=== PATIENT | male | born 1980 | race Caucasian/White ===

== ENCOUNTER 2016-07-13 20:57 | Observation (INO) | payer MEDICAID, OTHER ==
[~2016-07-13] VITALS: Ht 180.3 cm; Wt 100.0 kg
[~2016-07-13 20:57] MED LIST: ROBA750T PO; TYLE3 PO
[2016-07-13 20:59] VITALS: BP 143/88; PULSE 74; RESP 16; TEMP 97.8; O2SAT 98
[2016-07-14 00:29] VITALS: BP 127/78; PULSE 77; RESP 20; O2SAT 97
[2016-07-14 01:19] LABS: BLOOD, URINE NEG (NEG); COMMENT (UR) CULT NOT INDICATED; CULTURE IF INDICATED CULT NOT INDICATED; GLUCOSE,URINE NEG (NEG); KETONE, URINE NEG (NEG); MUCUS URINE FEW /lpf (OCC); NITRITE,URINE NEG (NEG); PH, URINE 5.5 (5.0-8.5); SQUAMOUS EPITHELIAL CELL URINE <1 /hpf (0-5); URINE COLOR YELLOW (YELLW/STRAW)
[2016-07-14 01:24] LABS: AUTOMATED NEUTROPHIL # 13.3 TH/MM3 (1.8-7.7); BASOPHIL % 0.2 % (0.0-2.0); EOSINOPHIL % 0.2 % (0.0-4.0); HEMATOCRIT 43.9 % (39.0-51.0); HEMO FLAGS DIFF FINAL; LYMPHOCYTE # 1.4 TH/MM3 (1.0-4.8); MEAN CELL VOLUME 88.4 FL (80.0-100.0); MEAN CORPUSCULAR HEMOGLOBIN 30.2 PG (27.0-34.0); MEAN CORPUSCULAR HGB CONC 34.2 % (32.0-36.0); MONO % 4.6 % (0.0-8.0); PLATELET COUNT 207 TH/MM3 (150-450); RED BLOOD COUNT 4.97 MIL/MM3 (4.50-5.90); RED CELL DISTRIBUTION WIDTH 13.4 % (11.6-17.2); WHITE BLOOD COUNT 15.4 TH/MM3 (4.0-11.0)
[2016-07-14 01:25] LABS: AMPHETAMINE, URINE NEG (NEG); BARBITURATES, URINE NEG (NEG); COCAINE, URINE NEG (NEG)
[2016-07-14 01:31] LABS: APTT (PATIENT) 28.5 SEC (24.3-30.1); PROTHROMBIN TIME - PATIENT 11.2 SEC (9.8-11.6)
[2016-07-14 01:37] LABS: ALT (GPT) 33 U/L (12-78); ANION GAP 6 MEQ/L (5-15); AST (GOT) 14 U/L (15-37); BICARBONATE 28.9 MEQ/L (21.0-32.0); BLOOD UREA NITROGEN 13 MG/DL (7-18); CHLORIDE 104 MEQ/L (98-107); GLOMERULAR FILTRATION RATE 75 ML/MIN (>89); POTASSIUM 3.8 MEQ/L (3.5-5.1); SODIUM (NA) 139 MEQ/L (136-145)
[2016-07-14 01:41] LABS: ALKALINE PHOSPHATASE 55 U/L (45-117); CREATINE KINASE 113 U/L (39-308); TOTAL BILIRUBIN ADULT 0.5 MG/DL (0.2-1.0)
[2016-07-14 01:54] LABS: CKMB 1.1 NG/ML (0.5-3.6)
--- NOTE | 2016-07-14 02:03 | RADRPT ---
EXAM DATE/TIME: 07/14/2016 01:06 [facility] COMPARISON: No previous studies available for comparison. INDICATIONS : Syncope. RADIATION DOSE: 56.35 CTDIvol (mGy) MEDICAL HISTORY : None SURGICAL HISTORY : Appendectomy. ENCOUNTER: Initial ACUITY: 1 day PAIN SCALE: 0/10 LOCATION: cranial TECHNIQUE: Multiple contiguous axial images were obtained of the head. Using automated exposure control and adj ustment of the mA and/or kV according to patient size, radiation dose was kept as low as reasonably a chievable to obtain optimal diagnostic quality images. FINDINGS: CEREBRUM: The ventricles are normal for age. No evidence of midline shift, mass lesion, hemorrhage or acute in farction. No extra-axial fluid collections are seen. POSTERIOR FOSSA: The cerebellum and brainstem are intact. The 4th ventricle is midline. The cerebellopontine angle i s unremarkable. EXTRACRANIAL: The visualized portion of the orbits is intact. SKULL: The calvaria is intact. No evidence of skull fracture. CONCLUSION: Normal examination. Pj Lundberg MD on July 14, 2016 at 2:01 Board Certified Radiologist. This report was verified electronically.
--- NOTE | 2016-07-14 02:09 | RADRPT ---
EXAM DATE/TIME: 07/14/2016 00:56 [facility] COMPARISON: No previous studies available for comparison. INDICATIONS : Syncope. Weakness. MEDICAL HISTORY : None. SURGICAL HISTORY : None. ENCOUNTER: Initial ACUITY: 1 day PAIN SCORE: 6/10 LOCATION: Bilateral chest FINDINGS: A single view of the chest demonstrates the lungs to be symmetrically aerated without evidence of mas s, infiltrate or effusion. The cardiomediastinal contours are unremarkable. Osseous structures are intact. CONCLUSION: No acute disease. Pj Lundberg MD on July 14, 2016 at 2:08 Board Certified Radiologist. This report was verified electronically.
--- NOTE | 2016-07-14 02:32 | PD ---
HPI Chief Complaint: Syncope/Near-Syncope Time Seen by Provider: 00:40 Travel History International Travel<30 days: No Contact w/Intl Traveler<30days: No Traveled to known affect area: No History of Present Illness HPI The patient is a 36 year old male who presents to the [facility] emergency department with a history of while sitting in a movie theater watching a movie with his and family reportedly beginning to feel ill. He began to sweat according to his and then became unresponsive with his eyes rolling back in his head and shaking of his extremities. She reports that this lasted for a minute and then the patient became more awake. The patient had one episode of vomiting then and another one after arriving in the emergency department. His reports that he was drowsy after this episode and confused. The patient reports that a similar episode happened 2-3 years ago. He did not get evaluated at that time for this. He denies having any other neurologic history. The patient denies biting his tongue. He denies having any loss of bowel or bladder control. The patient on review of systems reports that he did have a headache yesterday. He reports that he took a leftover Tylenol No. 4 from home. He reports that he does not have a headache currently. The patient denies any recent fevers, cough, congestion, neck pain, chest pain, shortness of breath, abdominal pain, diarrhea, urinary symptoms, or other neurologic symptoms. FOR[facility]LY [facility] Past Medical History Narrative Medical The patient's past medical history is reportedly none. Autoimmune Disease: No Blood Disorders: No Cancer: No Cardiovascular Problems: No Diabetes: No Diminished Hearing: No Genitourinary: No Musculoskeletal: No Neurologic: No Psychiatric: No Respiratory: No Thyroid Disease: No Past Surgical History Narrative Surgical The patient's past surgical history significant for an appendectomy. Abdominal Surgery: Yes (appendics) Appendectomy: Yes Cardiac Surgery: No Ear Surgery: No Endocrine Surgery: No Eye Surgery: No Genitourinary Surgery: No Gynecologic Surgery: No Oral Surgery: No Thoracic Surgery: No Other Surgery: Yes (SKIN GRAFT TO RIGHT HAND) Social History Alcohol Use: No Tobacco Use: No Substance Use: Yes (daily marijuana use) Allergies-Medications (Allergen,Severity, Reaction): Coded Allergies: Aspirin (Verified Allergy, Severe, EYES SWELLING, 07/13/16) Ibuprofen (Verified Allergy, Severe, 07/13/16) Penicillin (Verified Allergy, Severe, Hives, 07/13/16) E-Mycin (Verified Allergy, Intermediate, rash, 07/13/16) Reported Meds & Prescriptions Reported Meds & Active Scripts Active Review of Systems Except as stated in HPI: all other systems reviewed are Neg General / Constitutional: No: Fever Eyes: No: Visual changes HENT: No: Headaches Cardiovascular: No: Chest Pain or Discomfort Respiratory: No: Shortness of Breath Gastrointestinal: Positive: Nausea, Vomiting (2 prior to arrival), No: Diarrhea, Abdominal Pain Genitourinary: No: Dysuria Musculoskeletal: No: Pain Skin: No Rash Neurologic: Positive: Weakness (generalized weakness), Syncope, Change in Mentation, Seizures, No: Focal Abnormalities, Slurred Speech, Sensory Disturbance Psychiatric: No: Depression Endocrine: No: Polydipsia Hematologic/Lymphatic: No: Easy Bruising Physical Exam Narrative General: The patient is a well-developed well-nourished male in no acute distress. Head and Neck exam: Head is normocephalic atraumatic. Eyes: EOMI, pupils are equal round and reactive to light. Nose: Midline septum with pink mucous membranes Mouth: Dentition unremarkable. Moist mucus membranes. Posterior oropharynx is not erythematous. No tonsillar hypertrophy. Uvula midline. Airway patent. No evidence of tongue biting or contusion to the tongue. Neck: No palpable lymphadenopathy. No nuchal rigidity. No thyromegaly. Cardiovascular: Regular rate and rhythm without murmurs, gallops, or rubs. Lungs: Clear to auscultation bilaterally. No wheezes, rhonchi, or rales. Abdomen: Soft, without tenderness to palpation in all 4 quadrants of the abdomen. No guarding, rebound, or rigidity. Normal bowel sounds are audible. Extremities: No clubbing, cyanosis, or edema. 2+ pulses in all 4 extremities. No calf tenderness on palpation. Back: No spinous process tenderness to palpation. No costovertebral angle tenderness to palpation. Neurologic Exam: Cranial nerves 2-12 were intact on exam. Strength is 5/5 in all 4 extremities. No sensory deficits noted. Skin Exam: No rash noted. Intact skin that is warm and dry. Data Data Last Documented VS Vital Signs Date Time Temp Pulse Resp B/P Pulse Ox O2 Delivery O2 Flow Rate FiO2 07/14/16 00:29 77 20 127/78 97 Room Air 07/13/16 20:59 97.8 Orders Electrocardiogram (07/14/16 00:41) Complete Blood Count With Diff (07/14/16 00:41) Comprehensive Metabolic Panel (07/14/16 00:41) Creatine Kinase (Cpk) (07/14/16 00:41) Ckmb (Isoenzyme) Profile (07/14/16 00:41) Troponin I (07/14/16 00:41) B-Type Natriuretic Peptide (07/14/16 00:41) Prothrombin Time / Inr (Pt) (07/14/16 00:41) Act Partial Throm Time (Ptt) (07/14/16 00:41) Lipase (07/14/16 00:41) Urinalysis - C+S If Indicated (07/14/16 00:41) Chest, Single Ap (07/14/16 00:41) Ct Brain W/O Iv Contrast(Rout) (07/14/16 00:41) Iv Access Insert/Monitor (07/14/16 00:41) Ecg Monitoring (07/14/16 00:41) Oximetry (07/14/16 00:41) Drug Screen, Random Urine (07/14/16 00:41) Alcohol (Ethanol) (07/14/16 00:41) CKMB (07/14/16 01:05) CKMB% (07/14/16 01:05) Sodium Chlor 0.9% 1000 Ml Inj (Ns 1000 M (07/14/16 02:45) Ondansetron Inj (Zofran Inj) (07/14/16 02:45) Admit Order (Ed Use Only) (07/14/16 02:54) Labs Laboratory Tests Test 07/14/16 01:05 White Blood Count 15.4 TH/MM3 Red Blood Count 4.97 MIL/MM3 Hemoglobin 15.0 GM/DL Hematocrit 43.9 % Mean Corpuscular Volume 88.4 FL Mean Corpuscular Hemoglobin 30.2 PG Mean Corpuscular Hemoglobin 34.2 % Concent Red Cell Distribution Width 13.4 % Platelet Count 207 TH/MM3 Mean Platelet Volume 8.1 FL Neutrophils (%) (Auto) 86.0 % Lymphocytes (%) (Auto) 9.0 % Monocytes (%) (Auto) 4.6 % Eosinophils (%) (Auto) 0.2 % Basophils (%) (Auto) 0.2 % Neutrophils # (Auto) 13.3 TH/MM3 Lymphocytes # (Auto) 1.4 TH/MM3 Monocytes # (Auto) 0.7 TH/MM3 Eosinophils # (Auto) 0.0 TH/MM3 Basophils # (Auto) 0.0 TH/MM3 CBC Comment DIFF FINAL Differential Comment Prothrombin Time 11.2 SEC Prothromb Time International 1.0 RATIO Ratio Activated Partial 28.5 SEC Thromboplast Time Urine Color YELLOW Urine Turbidity CLEAR Urine pH 5.5 Urine Specific [place] 1.021 Urine Protein TRACE mg/dL Urine Glucose (UA) NEG mg/dL Urine Ketones NEG mg/dL Urine Occult Blood NEG Urine Nitrite NEG Urine Bilirubin NEG Urine Urobilinogen LESS THAN 2.0 MG/DL Urine Leukocyte Esterase NEG Urine RBC 1 /hpf Urine WBC 4 /hpf Urine Squamous Epithelial <1 /hpf Cells Urine Mucus FEW /lpf Microscopic Urinalysis Comment CULT NOT INDICATED Sodium Level 139 MEQ/L Potassium Level 3.8 MEQ/L Chloride Level 104 MEQ/L Carbon Dioxide Level 28.9 MEQ/L Anion Gap 6 MEQ/L Blood Urea Nitrogen 13 MG/DL Creatinine 1.12 MG/DL Estimat Glomerular Filtration 75 ML/MIN Rate Random Glucose 103 MG/DL Calcium Level 9.2 MG/DL Total Bilirubin 0.5 MG/DL Aspartate Amino Transf 14 U/L (AST/SGOT) Alanine Aminotransferase 33 U/L (ALT/SGPT) Alkaline Phosphatase 55 U/L Total Creatine Kinase 113 U/L Creatine Kinase MB 1.1 NG/ML Troponin I LESS THAN 0.02 NG/ML B-Type Natriuretic Peptide 2 PG/ML Total Protein 7.5 GM/DL Albumin 4.5 GM/DL Lipase 97 U/L Urine Opiates Screen POS Urine Barbiturates Screen NEG Urine Amphetamines Screen NEG Urine Benzodiazepines Screen NEG Urine Cocaine Screen NEG Urine Cannabinoids Screen POS Ethyl Alcohol Level LESS THAN 3 MG/DL MDM Medical Decision Making Medical Screen Exam Complete: Yes Emergency Medical Condition: Yes Medical Record Reviewed: Yes Interpretation(s) Last Impressions Head CT 07/14/1640 Signed Impressions: Service Date/Time: Thursday, July 14, 2016 01:06 - CONCLUSION: Normal examination. Pj Lundberg MD Chest X-Ray 07/14/1640 Signed Impressions: Service Date/Time: Thursday, July 14, 2016 00:56 - CONCLUSION: No acute disease. Pj Lundberg MD Brain MRI 07/14/16 0000 Signed Impressions: Service Date/Time: Thursday, July 14, 2016 08:10 - CONCLUSION: Normal examination. Nicho Luo Jr., MD Differential Diagnosis Syncope, versus seizure disorder, versus hypoglycemic event, versus encephalopathy, versus intracranial abnormality Narrative Course During the course of the patients emergency department visit, the patients history, examination, and differential diagnosis were reviewed with the patient. The patient had IV access obtained and blood work sent for analysis. The patient was placed on a ekg monitor tech with oximetry and blood pressure monitoring. The patient had an EKG done on arrival. The patient's EKG shows a sinus rhythm heart rate of 74, moderate voltage criteria for LVH, no acute ST segment elevation is noted. T waves are inverted in V1, V2. The patient was provided normal saline 1 L IV fluid bolus, Zofran 4 mg IVP The patients laboratory studies were reviewed and remarkable for a CBC that shows a white count of 15.4, hemoglobin 15, platelets 207 with 86 neutrophils. CMP is remarkable for a GFR of 75, AST 14, CPK 113, troponin I less than 0.02, BNP is 2, lipase 97, PT PTT unremarkable. Urinalysis shows no acute abnormality. Urine drug screen is positive for opiates and cannabinoids, alcohol less than 3. Radiology studies were reviewed and remarkable for a chest x-ray that is unremarkable, CT scan of the brain shows no acute abnormality. As this is the second occasion that episode similar to this has occurred in this could be related to seizure activity versus syncope, the patient will be admitted to the hospital for continued evaluation and treatment. The patients results were discussed with the patient, including the plan of care. I explained that further testing and/ or monitoring is indicated based on the patients history, examination, and/ or laboratory findings. Therefore, I recommended admission for additional evaluation. The patient expressed understanding and was agreeable with this plan. The patient was admitted to the hospital in stable condition and [facility] Physician Communication Physician Communication The patient's case was discussed with Dr. Carey who did agree to admit the patient for further evaluation and treatment at this time. Diagnosis Primary Impression: Seizure-like activity Additional Impression: Vomiting Qualified Code: R11.2 - Non-intractable vomiting with nausea, unspecified vomiting type Admitting Information Admitting Physician Requests: Observation Rohini Ansari MD Jul 14, 2016 02:32
[2016-07-14] MEDS ORDERED: ONDANSETRON HCL 4 MG/2 ML VIAL IV ONE (02:45)
[2016-07-14] MEDS ORDERED: SODIUM CHLOR 0.9% 1000 ML INJ 1,000 ML IV ONE (02:45)
[2016-07-14] MEDS ORDERED: LORazepam 2 MG/ML VIAL IV PUSH PRN (03:15)
[2016-07-14] MEDS ORDERED: ACETAMINOPHEN/HYDROcodone 325 MG/5 MG TAB PO PRN (03:15)
[2016-07-14] MEDS ORDERED: ACETAMINOPHEN/HYDROcodone 325 MG/10 MG TAB PO PRN (03:15)
[2016-07-14] MEDS ORDERED: ACETAMINOPHEN 325 MG TAB PO PRN (03:15)
[2016-07-14] MEDS ORDERED: BISACODYL 10 MG SUPP PR PRN (03:15)
[2016-07-14] MEDS ORDERED: ONDANSETRON HCL 4 MG/2 ML VIAL IVP PRN (03:15)
[2016-07-14] MEDS ORDERED: SODIUM CHLORIDE 0.9% FLUSH 10 ML FLUSH IV FLUSH PRN (03:15)
[2016-07-14] MEDS: SODIUM CHLOR 0.9% 1000 ML INJ 1,000 ML IV SCH ×2 (03:52→15:44)
[2016-07-14 03:53] VITALS: BP 129/67; PULSE 75; PULSE 83; RESP 18; O2SAT 99
--- NOTE | 2016-07-14 04:34 | HHI.HP ---
[facility] No Primary Care Physician Admission Diagnosis Syncope versus seizure activity Diagnoses: (1) Seizure Diagnosis: Principal (2) Dehydration Diagnosis: Principal (3) Leukocytosis Diagnosis: Principal Travel History International Travel<30 Days: No Contact w/Intl Traveler <30 Da: No Traveled to Known Affected Are: No History of Present Illness This is a 36-year-old male with no reported PMH was brought to the ER secondary to suspected seizure activity. Pt was apparently at the movies w/ family when girlfriend noted acute onset of shaking, states eyes rolled in the back of his head. Episode lasted approx 1 min, no incontinence of urine or feces. No prolonged post-ictal period. Reports similar event approx 2yrs ago however did not seek medical attention at that time. On arrival, BP 143/88, HR 74, O2 sat 98% on RA, Afebrile. WBC 15.4. Chemistry unremarkable except for GFR 75. INR 1.0. UA negative. Urine Drug Screen positive for Opiates, positive for Marijuana. Pt reports taking Tylenol #4 for headache earlier today. CT Head normal. CXR with no acute findings. Review of Systems Except as stated in HPI: all other systems reviewed are Neg ROS: 14 point review of systems otherwise negative. Past Family Social History Past Medical History PMH: None Past Surgical History PAST SURGICAL HISTORY: Appendectomy, Hand Skin Graft Allergies: Coded Allergies: Aspirin (Verified Allergy, Severe, EYES SWELLING, 07/13/16) Ibuprofen (Verified Allergy, Severe, 07/13/16) Penicillin (Verified Allergy, Severe, Hives, 07/13/16) E-Mycin (Verified Allergy, Intermediate, rash, 07/13/16) Family History PAST FAMILY HISTORY: Reviewed. No h/o DM or CAD Social History PAST SOCIAL HISTORY: Negative for alcohol or tobacco. Smokes Marijuana daily. Physical Exam Vital Signs Vital Signs Date Time Temp Pulse Resp B/P Pulse Ox O2 Delivery O2 Flow Rate FiO2 07/14/16 03:53 75 18 129/67 99 Room Air 07/14/16 03:53 83 18 129/67 99 Room Air 07/14/16 00:29 77 20 127/78 97 Room Air 07/13/16 20:59 97.8 74 16 143/88 98 Room Air Physical Exam PE: GENERAL: Young male in no acute distress. HEENT: PERRLA, EOMI. No scleral icterus or conjunctival pallor. No lid lag or facial droop. CARDIOVASCULAR: Regular rate and rhythm. No obvious murmurs to auscultation. No chest tenderness to palpation. RESPIRATORY: No obvious rhonchi or wheezing. Clear to auscultation. Breath sounds equal bilaterally. GASTROINTESTINAL: Abdomen soft, non-tender, nondistended. BS normal. MUSCULOSKELETAL: Extremities without clubbing, cyanosis, or edema. No obvious deformities. NEUROLOGICAL: Awake, alert and oriented x4. No focal neurologic deficits. Moving both upper and lower extremities spontaneously. Laboratory Laboratory Tests Test 07/14/16 01:05 White Blood Count 15.4 Red Blood Count 4.97 Hemoglobin 15.0 Hematocrit 43.9 Mean Corpuscular Volume 88.4 Mean Corpuscular Hemoglobin 30.2 Mean Corpuscular Hemoglobin 34.2 Concent Red Cell Distribution Width 13.4 Platelet Count 207 Mean Platelet Volume 8.1 Neutrophils (%) (Auto) 86.0 Lymphocytes (%) (Auto) 9.0 Monocytes (%) (Auto) 4.6 Eosinophils (%) (Auto) 0.2 Basophils (%) (Auto) 0.2 Neutrophils # (Auto) 13.3 Lymphocytes # (Auto) 1.4 Monocytes # (Auto) 0.7 Eosinophils # (Auto) 0.0 Basophils # (Auto) 0.0 CBC Comment DIFF FINAL Differential Comment Prothrombin Time 11.2 Prothromb Time International 1.0 Ratio Activated Partial 28.5 Thromboplast Time Urine Color YELLOW Urine Turbidity CLEAR Urine pH 5.5 Urine Specific [place] 1.021 Urine Protein TRACE Urine Glucose (UA) NEG Urine Ketones NEG Urine Occult Blood NEG Urine Nitrite NEG Urine Bilirubin NEG Urine Urobilinogen LESS THAN 2.0 Urine Leukocyte Esterase NEG Urine RBC 1 Urine WBC 4 Urine Squamous Epithelial <1 Cells Urine Mucus FEW Microscopic Urinalysis Comment CULT NOT INDICATED Sodium Level 139 Potassium Level 3.8 Chloride Level 104 Carbon Dioxide Level 28.9 Anion Gap 6 Blood Urea Nitrogen 13 Creatinine 1.12 Estimat Glomerular Filtration 75 Rate Random Glucose 103 Calcium Level 9.2 Total Bilirubin 0.5 Aspartate Amino Transf 14 (AST/SGOT) Alanine Aminotransferase 33 (ALT/SGPT) Alkaline Phosphatase 55 Total Creatine Kinase 113 Creatine Kinase MB 1.1 Troponin I LESS THAN 0.02 B-Type Natriuretic Peptide 2 Total Protein 7.5 Albumin 4.5 Lipase 97 Urine Opiates Screen POS Urine Barbiturates Screen NEG Urine Amphetamines Screen NEG Urine Benzodiazepines Screen NEG Urine Cocaine Screen NEG Urine Cannabinoids Screen POS Ethyl Alcohol Level LESS THAN 3 Result Diagram: 07/14/1610407/14/16104 Assessment and Plan Problem List: (1) Seizure ICD Code: R56.9 Status: Acute (2) Leukocytosis ICD Code: D72.829 Status: Acute (3) Dehydration ICD Code: E86.0 Status: Acute Assessment and Plan A/P: 1. Seizure: acute seizure activity lasting approx 1min, witnessed by family, no incontinence, similar event approx 2yrs ago, did not seek medical attention at that time. CT Head w/ no acute findings, images reviewed by me. No recurrent seizure while in ER. Seizure Precautions, Ativan prn, EEG, check MRI Brain, Consult Neurology for further evaluation. 2. Leukocytosis: WBC 15.4, afebrile, likely related to seizure activity, no evidence of infection, CXR w/ no acute findings, images reviewed by me. U/a negative. Repeat labs in am. 3. Dehydration: GFR 75, IVF for hydration, repeat labs in am. 4. DVT Prophylaxis: SCD/Teds. 5. Social work for d/c planning as needed. 6. Case discussed w/ ER physician at length. Shannon Carey MD Jul 14, 2016 04:34
[2016-07-14 07:59] VITALS: BP 120/65; PULSE 81; RESP 18; O2SAT 99
--- NOTE | 2016-07-14 08:55 | RADRPT ---
EXAM DATE/TIME: 07/14/2016 08:10 [facility] COMPARISON: CT BRAIN W/O CONTRAST, July 14, 2016, 1:06. INDICATIONS : Seizures. MEDICAL HISTORY : None. SURGICAL HISTORY : Appendectomy. ENCOUNTER: Initial ACUITY: 1 day PAIN SCORE: 0/10 LOCATION: head TECHNIQUE: Multiplanar, multisequence MRI of the brain was performed without contrast. FINDINGS: CEREBRUM: The ventricles are normal for age. No evidence of midline shift, mass lesion, hemorrhage or acute in farction. No extraaxial fluid collections are seen. The pituitary gland and suprasellar cistern are normal in configuration. WHITE MATTER: No significant signal abnormalities are seen in the white matter. POSTERIOR FOSSA: The cerebellum and brainstem are intact. The 4th ventricle is midline. The cerebellopontine angle is unremarkable. The cerebellar tonsils are normal in position. DIFFUSION IMAGING: No focal areas of restricted diffusion are seen. No evidence of acute infarction. EXTRACRANIAL: The visualized portions of the orbits and paranasal sinuses are unremarkable. CONCLUSION: Normal examination. Nicho Luo Jr., MD on July 14, 2016 at 8:51 Board Certified Radiologist. This report was verified electronically.
[2016-07-14] MEDS ORDERED: SODIUM CHLORIDE 0.9% FLUSH 10 ML FLUSH IV FLUSH SCH (09:00)
[2016-07-14 11:20] VITALS: BP 120/71; PULSE 75; RESP 20; TEMP 98.2; O2SAT 94
--- NOTE | 2016-07-14 14:06 | EKG ---
Date Performed: 07/14/2016 Time Performed: 01:27:40 PTAGE: 36 years EKG: Sinus rhythm MODERATE VOLTAGE CRITERIA FOR LVH, CONSIDER NORMAL VARIANT BORDERLINE ECG NO PREVIOUS TRACING DOCTOR: Ryan Escalera Interpretating Date/Time 07/14/2016 14:02:11
--- NOTE | 2016-07-14 15:28 | MB ---
cc: POLINA PEPPER MD DATE OF CONSULTATION: 07/14/2016 REASON FOR CONSULTATION Syncope versus seizure. HISTORY OF PRESENT ILLNESS Mr. Pace is a 36-year-old male with no reported past medical history, who was brought to the [facility] Emergency Room due to suspected seizure activity. The patient stated that he was in a movie theatre with his girlfriend and then he started sweating heavily, felt light-headed, and then the girlfriend noticed that his eyes rolled in the back of his head. This lasted one minutes after which the patient was back to himself with no reported incontinence of urine or bowel, tongue biting, or foaming. He then went out and vomited with continued sweating. He denies any confusion after this episode but he relates to an episode that happened two years ago when he was on a plane. He was sleeping. He felt profuse sweating, was light-headed, he vomited and then immediately was back to himself. Upon arrival to the ER vital signs and blood work were unremarkable other than elevated white blood cell count of 15.4. Urine drug screen was positive for opiates and marijuana. The patient reports taking Tylenol No.4 for headache earlier that day. The mother who is at the bedside states that he was born with mild jaundice without the need of blood transfusion, no history of meningitis, encephalitis, seizures or febrile convulsions, and no family history of seizures. REVIEW OF SYSTEMS A 12-point review of systems is negative except for what is stated in the HPI. PAST MEDICAL HISTORY None. PAST SURGICAL HISTORY 1. Appendectomy. 2. Hand skin graft. ALLERGIES 1. ASPIRIN. 2. IBUPROFEN. 3. PENICILLIN. FAMILY HISTORY Noncontributory. SOCIAL HISTORY Negative for alcohol or tobacco. Smokes marijuana daily. PHYSICAL EXAMINATION GENERAL: Awake, alert, oriented. A good historian not in acute distress. HEENT: Atraumatic, normocephalic. Intact hearing. Intact vision. PULMONARY: Clear to auscultation. No wheezes. CARDIOVASCULAR: Regular rate and rhythm. EXTREMITIES: Without clubbing, cyanosis or edema. Moves all extremities equally. NEUROLOGIC: Awake, alert, oriented to time, person and place. Intact memory. Intact speech. Intact speech content. No dysarthria and no dysphagia. Cranial nerves II-XII are grossly intact. Muscle strength 5/5 bilateral and symmetrical. Normal tone. No abnormal movements. [id number] and [id number] is intact bilateral and symmetrical. Sensation to pain, temperature and touch is intact bilateral and symmetrical. PSYCHOLOGICAL: Good mood and behavior. No hallucinations. LABORATORY DATA White blood cell count 15.4, hemoglobin 15, hematocrit 43.9. Sodium 139, potassium 3.8, anion gap 6, BUN 13, creatinine 1.12, albumin 4.5. UDS positive for opiates and cannabinoids. Ethyl alcohol less than 3. PT 11.2, INR 1. DIAGNOSTIC IMAGING - Head CT scan without contrast was reported as a normal examination. - MRI brain without contrast was reported as a normal examination. DIAGNOSTIC IMPRESSION 1. Syncope/convulsive syncope Likely related to medication/ drug side effect, or may be related to cardiovascular etiology. 2. Rule out metabolic or infectious etiology. PLAN 1. Neuro-checks q.4h. 2. EEG. 3. Seizure precautions. 4. Orthostatic vitals. 5. Telemetry. 6. DVT prophylaxis. Thank you for the opportunity to participate in the care of your patient. MD SALO Taylor/DERREK /1:55 PM /3:17 PM SUPRIYA
[2016-07-14 15:37] VITALS: BP 141/77; PULSE 73; RESP 20; TEMP 98.1; O2SAT 98
--- NOTE | 2016-07-14 18:34 | HHI.PR ---
Addendum To [facility] Progress Not Reason for addendum: Additonal documentation (RN reports the patient is leaving AMA. Will not be able to discharge the patient at this time, no EEG results, not cleared by Neuro. He will be signing out AGAINST MEDICAL ADVICE. ) (Monserrat Dasilva PA-C) Monserrat Dasilva PA-C Jul 14, 2016 18:34 Carolina Latham MD Jul 14, 2016 22:23
--- NOTE | 2016-07-15 08:33 | MG ---
cc: HEATHER VÁSQUEZ Lab No: [id number] Date: 07/15/2016 Age: ___ Sex: M Race: __ INDICATIONS Syncopal episode, possible seizure. DESCRIPTION The recording shows a 9-10 Hz 60 microvolt symmetric posterior and diffuse rhythm. No hemisphere asymmetries are noted. Photic stimulation was performed without significant posterior driving. Hyperventilation was performed without change in the background. IMPRESSION A normal awake EEG. No evidence for a focal or diffuse abnormality. MD MANAV Villegas/JEREMY /8:20 AM /8:31 AM
== END 2016-07-14 18:44 | disposition home or self-care (01) ==
LOC: NEPE 20:57 → NEDA 07-14 02:56 → NEDH 07-14 06:19 → NEPGCP 07-14 11:17
PROVIDERS: ADMIT Hospitalist; ATTEND Hospitalist
DX: R56.9 Unspecified convulsions (principal); R55 Syncope and collapse; R11.2 Nausea with vomiting, unspecified; E86.0 Dehydration; D72.829 Elevated white blood cell count, unspecified; F12.90 Cannabis use, unspecified, uncomplicated; Z88.0 Allergy status to penicillin; Z88.1 Allergy status to other antibiotic agents; Z88.5 Allergy status to narcotic agent
CPT/HCPCS: 70450; 70551; 71010; 80053; 80307; 81001; 82550; 82552; 83690; 83880; 84484; 85025; 85610; 85730; 93005; 95819; 99285; G0378; J7030